=== PATIENT | male | born 1990 | race Hispanic/Latino ===

== ENCOUNTER 2021-12-08 12:09 | Inpatient (IN) | payer SELFPAY ==
[2021-12-08] MEDS ORDERED: MORPHINE 4 MG/1 ML INJ IV ONE ×2 (12:52→17:01)
[2021-12-08] MEDS ORDERED: ONDANSETRON 4 MG/2 ML INJ IV ONE ×2 (12:52→17:01)
[2021-12-08] MEDS ORDERED: TETANUS,DIPH,PERTUSS(ACELL) VACCINE 0.5 ML SYRINGE IM ONE (12:52)
[2021-12-08] MEDS ORDERED: levETIRAcetam 1000 MG/NS 0.75% 1,000 MG/100 ML BAG IV ONE (12:52)
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
[2021-12-08 13:26] LABS: Bilirubin,Urine NEG (Negative); Blood,Urine SM (Negative); Color,Urine Yellow (Yellow); Mucus,Urine FEW /HPF; RBC,Urine < 1.0 /HPF (0.0-6.0); Urobilinogen,Urine < 2.0 mg/dL (<2.0); WBC,Urine < 1.0 /HPF (0.0-6.0)
[2021-12-08 13:48] LABS: Basophils % (Auto) 0.4 % (0.0-1.8); Eosinophils % (Auto) 0.3 % (0.0-4.3); Hematocrit 49.5 % (35.5-45.6); Hemoglobin 16.2 gm/dl (11.8-15.2); Lymphocytes # (Auto) 0.8 K/mm3 (1.2-5.4); Lymphocytes % (Auto) 6.7 % (13.4-35.0); Mean Corpuscular HGB Conc 33 % (32-34); Mean Corpuscular Volume 96 fl (84-94); Monocytes # (Auto) 0.5 K/mm3 (0.0-0.8); Monocytes % (Auto) 4.7 % (0.0-7.3); Platelet Count 242 K/mm3 (140-440); Red Blood Count 5.15 M/mm3 (3.65-5.03); Red Cell Distribution Width 13.4 % (13.2-15.2)
[2021-12-08 14:26] LABS: Alanine Aminotransferase 78 units/L (7-56); Albumin 4.5 g/dL (3.9-5); BUN/Creatinine Ratio 12; Blood Urea Nitrogen 11 mg/dL (9-20); Calcium 9.4 mg/dL (8.4-10.2); Hemolysis Index 19
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
[2021-12-08 15:33] LABS: Amphetamine Screen,Urine Negative; Benzodiazepines Screen,Urine Negative; Cocaine Screen,Urine Negative; Methadone Screen,Urine Negative; Opiate Screen,Urine Negative
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
[2021-12-08 15:56] LABS: Cannabinoid Screen,Urine Positive
[2021-12-08] MEDS ORDERED: SODIUM CHLORIDE 0.9% IRR 500 ML BOTTLE IR ONE (17:00)
[2021-12-08] MEDS ORDERED: SODIUM CHLORIDE 0.9% 1000 ML 1,000 ML IV ONE (17:01)
[2021-12-08] MEDS ORDERED: LORazepam 2 MG/ML VIAL IV ONE ×2 (17:46→19:25)
[2021-12-08] MEDS ORDERED: LORazepam 2 MG TAB PO PRN (19:19)
[2021-12-08] MEDS ORDERED: LORazepam 2 MG/ML VIAL IV PRN (19:19)
[2021-12-08] MEDS ORDERED: HYDROmorphone 1 MG/1 ML INJ IV ONE (19:30)
[2021-12-08] MEDS ORDERED: MORPHINE 4 MG/1 ML INJ IV SCH (20:00)
[2021-12-08] MEDS ORDERED: THIAMINE 100 MG, FOLIC ACID 1 MG, MULTIPLE VITAMIN INJ, ADULT 10 ML in SODIUM CHLORIDE ... IV ONE (21:41)
[2021-12-08] MEDS ORDERED: levETIRAcetam 1,000 MG in DEXTROSE 5% IN WATER 100 ML IV SCH (22:00)
[2021-12-09] MEDS ORDERED: MAGNESIUM HYDROXIDE (MOM) ORAL LIQD UDC PO PRN (00:42)
[2021-12-09] MEDS ORDERED: ACETAMINOPHEN 325 MG TAB PO PRN (00:42)
[2021-12-09] MEDS ORDERED: ONDANSETRON 4 MG/2 ML INJ IV PRN (00:42)
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
[2021-12-09] MEDS: LORazepam 2 MG/ML VIAL IV PRN ×2 (01:31→13:56)
[2021-12-09] MEDS: MORPHINE 4 MG/1 ML INJ IV PRN ×2 (01:33→21:31)
[2021-12-09] MEDS: levETIRAcetam 1000 MG/NS 0.75% 1,000 MG/100 ML BAG IV SCH ×2 (02:26→14:03)
[2021-12-09] MEDS: HEPARIN 5,000 UNIT/1 ML VIAL SUB-Q SCH ×3 (06:07→21:41)
[2021-12-09] MEDS: MORPHINE 2 MG/1 ML INJ IV PRN ×2 (06:07→10:00)
[2021-12-09] MEDS: SODIUM CHLORIDE 0.9% 1000 ML 1,000 ML IV SCH (06:22)
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
--- NOTE | 2021-12-09 10:20 | Electrocardiograph Report ---
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
[2021-12-10] MEDS: levETIRAcetam 1000 MG/NS 0.75% 1,000 MG/100 ML BAG IV SCH ×2 (02:50→13:57)
[2021-12-10] MEDS: MORPHINE 4 MG/1 ML INJ IV PRN ×4 (03:24→21:48)
[2021-12-10] MEDS: HEPARIN 5,000 UNIT/1 ML VIAL SUB-Q SCH ×3 (05:55→21:48)
[2021-12-10 07:53] LABS: Basophils % (Auto) 0.6 % (0.0-1.8); Eosinophils # (Auto) 0.1 K/mm3 (0.0-0.4); Eosinophils % (Auto) 2.9 % (0.0-4.3); Hematocrit 41.3 % (35.5-45.6); Hemoglobin 13.8 gm/dl (11.8-15.2); Lymphocytes # (Auto) 1.1 K/mm3 (1.2-5.4); Mean Corpuscular HGB Conc 33 % (32-34); Mean Corpuscular Volume 95 fl (84-94); Monocytes # (Auto) 0.5 K/mm3 (0.0-0.8); Monocytes % (Auto) 11.6 % (0.0-7.3); Platelet Count 155 K/mm3 (140-440); Red Blood Count 4.34 M/mm3 (3.65-5.03); Red Cell Distribution Width 13.1 % (13.2-15.2)
[2021-12-10 08:16] LABS: Blood Urea Nitrogen 5 mg/dL (9-20); Calcium 8.3 mg/dL (8.4-10.2); Hemolysis Index 7
[2021-12-10 08:22] LABS: BUN/Creatinine Ratio 8
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
--- NOTE | 2021-12-10 11:09 | Magnetic Resonance Report ---
MR brain wo/w con INDICATION / CLINICAL INFORMATION: seizure, DIZZINESS. TECHNIQUE: Multiplanar, multisequence MR images of the brain were obtained. COMPARISON: 12/08/2021 CT head FINDINGS: INTRACRANIAL: No restricted diffusion. No hemorrhage. Ventricular caliber is normal. No extra-axial c ollection. No mass. No herniation. Major intracranial vascular flow voids are preserved. Bilateral h ippocampi are symmetric with preserved architecture and no abnormal T2 signal hyperintensity. ORBITS: No significant abnormality of visualized orbits. SINUSES / MASTOIDS: Minimal mucosal thickening in the maxillary sinuses. Mastoid air cells and remain [place] of the paranasal sinuses are clear. ADDITIONAL FINDINGS: None. IMPRESSION: 1. No significant intracranial abnormality. Signer Name: Keon Keller MD Signed: 12/10/2021 11:05 AM Workstation Name: [id number]
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
[2021-12-11] MEDS: levETIRAcetam 1000 MG/NS 0.75% 1,000 MG/100 ML BAG IV SCH (02:27)
[2021-12-11] MEDS: HEPARIN 5,000 UNIT/1 ML VIAL SUB-Q SCH ×3 (05:23→22:29)
[2021-12-11] MEDS: SODIUM CHLORIDE 0.9% 1000 ML 1,000 ML IV SCH (09:11)
[2021-12-11] MEDS: MORPHINE 4 MG/1 ML INJ IV PRN ×4 (09:11→22:32)
[2021-12-11] MEDS: levETIRAcetam 500 MG TAB PO SCH ×2 (10:27→21:07)
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
[2021-12-12] MEDS: MORPHINE 4 MG/1 ML INJ IV PRN ×3 (05:00→21:05)
[2021-12-12] MEDS: HEPARIN 5,000 UNIT/1 ML VIAL SUB-Q SCH ×3 (05:00→21:05)
[2021-12-12] MEDS: SODIUM CHLORIDE 0.9% 1000 ML 1,000 ML IV SCH (06:14)
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
[2021-12-12] MEDS: levETIRAcetam 500 MG TAB PO SCH ×2 (10:25→21:05)
[2021-12-12] MEDS: MORPHINE 2 MG/1 ML INJ IV PRN (14:36)
[2021-12-13] MEDS: MORPHINE 2 MG/1 ML INJ IV PRN ×2 (05:35→09:43)
[2021-12-13] MEDS: HEPARIN 5,000 UNIT/1 ML VIAL SUB-Q SCH (05:35)
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
[2021-12-13] MEDS: levETIRAcetam 500 MG TAB PO SCH (09:42)
[2021-12-13 13:20] VITALS: BP 112/55
== END 2021-12-13 15:00 | disposition home or self-care (01) | DRG 101 ==
LOC: ED 12:09 → 3A 12-09 00:43 → OBSVTOIN 12-09 15:00 → 3A 12-10 13:40
PROVIDERS: ADMIT Internal Medicine Geriatric Medicine; ATTEND Hospitalist
DX: G40.909 Epilepsy, unspecified, not intractable, without status epilepticus (principal); S32.028A Other fracture of second lumbar vertebra, initial encounter for closed fracture; F10.139 Alcohol abuse with withdrawal, unspecified; S02.2XXA Fracture of nasal bones, initial encounter for closed fracture; S00.83XA Contusion of other part of head, initial encounter; Y93.89 Activity, other specified; Y92.89 Other specified places as the place of occurrence of the external cause; V89.2XXA Person injured in unspecified motor-vehicle accident, traffic, initial encounter
CPT/HCPCS: 36415; 70450; 70486; 70553; 71045; 72125; 72148; 74177; 80048; 80053; 80307; 80320; 81001; 83735; 85025; 90715; 93005; 93010; 99406; G0378; J3490; Q0162; A9575; G0480; J1170; J1644; J1953; J2060; J2270; J2405; J3411; J7030; Q9967